=== PATIENT | male | born 1975 | race African-American/Black ===

== ENCOUNTER 2016-06-27 09:31 | Emergency (ER) | payer OTHER ==
[~2016-06-27] VITALS: Ht 185.4 cm; Wt 167.8 kg
[~2016-06-27 09:31] MED LIST: ALDACTONE25 MG; ALLOPURINOL 30300 M1 PO; AMLODIPINE BESYL5 M1 PO; AMOXICILLIN500 M1 PO; ATACAND32 MG PO; BENICAR20 MG PO; BENICAR40 MG; BENICAR40 MG PO; CARVEDILOL25 MG PO; CARVEDILOL6.25 MG; CATAPRES-TTS 10.1 MG; CATAPRES-TTS 20.2 MG TOP; COLCHICINE 0.60.6 M1 PO; COLCHICINE0.6 MG PO; COLCRYS 0.6 MG0.6 MG PO; FUROSEMIDE 20 M20 M1; FUROSEMIDE 40 M40 M1 PO; HYDRALAZINE 10M10 MG; HYDRALAZINE 2525 M1; IMDUR 60 MG TAB60 M1 PO; INDOMETHACIN 2525 MG PO; MEDROL DOSPAK21 TAB PO; MEDROLDOSEPACK PO; NAPROSYN500 MG PO; NORCO 5-325 TA1 EACH; NORCO 5-325 TA1 EACH PO; PERCOCET 5-3251 EACH PO; PREDNISONE 20 M20 M1 PO; SPIRONOLACTONE25 M1
[2016-06-27] MEDS ORDERED: INDOMETHACIN 2525 MG PO (09:52)
[2016-06-27] MEDS ORDERED: MEDROL DOSPAK21 TA1 PO (09:52)
[2016-06-27] MEDS ORDERED: HYDRALAZINE 2525 MG PO (10:02)
[2016-06-27] MEDS ORDERED: ALDACTONE25 MG PO (10:02)
[2016-06-27] MEDS ORDERED: DIOVAN 80 MG TA80 M1 PO (10:02)
[2016-06-27] MEDS ORDERED: LASIX 40 MG TAB40 M2 PO (10:03)
[2016-06-27] MEDS ORDERED: COLCHICINE0.6 M1 PO (10:03)
[2016-06-27] MEDS ORDERED: METFORMIN HCL500 MG PO (10:04)
[2016-06-27] MEDS ORDERED: IMDUR 60 MG TAB60 M1 PO (10:04)
[2016-06-27] MEDS ORDERED: COREG25 MG PO (10:05)
[2016-06-27 10:08] VITALS: BP 157/85
== END 2016-06-27 10:09 ==
LOC: ER 09:31
DX: M10.072 Idiopathic gout, left ankle and foot (principal); I11.0 Hypertensive heart disease with heart failure; I50.9 Heart failure, unspecified; F10.99 Alcohol use, unspecified with unspecified alcohol-induced disorder

== ENCOUNTER 2016-09-21 07:04 | Emergency (ER) | payer OTHER ==
[~2016-09-21] VITALS: Ht 185.4 cm; Wt 167.8 kg
[~2016-09-21 07:04] MED LIST changes: +ALDACTONE25 MG PO; +COLCHICINE0.6 M1 PO; +COREG25 MG PO; +DIOVAN 80 MG TA80 M1 PO; +HYDRALAZINE 2525 MG PO; +LASIX 40 MG TAB40 M2 PO; +MEDROL DOSPAK21 TA1 PO; +METFORMIN HCL500 MG PO
[2016-09-21] MEDS ORDERED: MEDROLDOSEPACK PO (07:29)
[2016-09-21 07:45] VITALS: BP 174/105
== END 2016-09-21 07:49 | disposition home or self-care (01) ==
LOC: ER 07:04
DX: M10.072 Idiopathic gout, left ankle and foot (principal); I11.0 Hypertensive heart disease with heart failure; I50.9 Heart failure, unspecified; F10.99 Alcohol use, unspecified with unspecified alcohol-induced disorder

== ENCOUNTER 2016-10-14 10:34 | Emergency (ER) | payer BC, OTHER ==
[~2016-10-14] VITALS: Ht 185.4 cm; Wt 167.8 kg
[2016-10-14 10:50] VITALS: BP 152/90
[2016-10-14 11:23] LABS: CALCIUM 9.2 mg/dL (8.5-10.1); CREATININE 1.1 mg/dL (0.7-1.3); POTASSIUM 4.6 mmol/L (3.5-5.1)
[2016-10-14 11:30] LABS: URIC ACID* 9.7 mg/dL (2.6-7.2)
[2016-10-14] MEDS ORDERED: INDOMETHACIN 2525 MG PO (11:34)
[2016-10-14] MEDS ORDERED: MEDROL DOSPAK21 TAB PO (11:34)
== END 2016-10-14 11:50 | disposition home or self-care (01) ==
LOC: ER 10:34
PROVIDERS: Physician Assistant
DX: M10.071 Idiopathic gout, right ankle and foot (principal); I11.0 Hypertensive heart disease with heart failure; I50.9 Heart failure, unspecified; F10.99 Alcohol use, unspecified with unspecified alcohol-induced disorder

== ENCOUNTER 2016-11-28 19:46 | Emergency (ER) | payer BC, OTHER ==
[~2016-11-28] VITALS: Ht 185.4 cm; Wt 180.5 kg
[2016-11-28 20:23] LABS: ABSOLUTE NEUTROPHILS 3.6 thou/uL (1.4-8.2); BASOPHILS 0.4 % (0.0-2.0); EOSINOPHILS 2.4 % (0.0-3.0); HEMATOCRIT 36.4 % (42.0-52.0); HEMOGLOBIN 12.1 gm/dL (14.0-18.0); LYMPHOCYTES 27.3 % (24.0-44.0); MANUAL DIFF NO; MCH 31.2 pg (26.0-34.0); MCHC 33.3 g/dL (28.0-37.0); MCV 93.4 fL (80.0-100.0); MONOCYTES 10.1 % (1.0-8.0); PLATELET COUNT 185 thou/uL (150-400); POLYS 59.8 % (36.0-66.0); RDW 13.8 % (10.5-14.5)
[2016-11-28] MEDS ORDERED: COLCHICINE0.6 MG PO (20:29)
[2016-11-28] MEDS ORDERED: INDOMETHACIN 5050 M1 PO (20:30)
[2016-11-28 20:39] LABS: CALCIUM 8.7 mg/dL (8.5-10.1); CREATININE 1.3 mg/dL (0.7-1.3); POTASSIUM 3.4 mmol/L (3.5-5.1)
[2016-11-28 20:44] LABS: ALBUMIN 3.8 g/dL (3.4-5.0); TOTAL PROTEIN 7.8 g/dL (6.4-8.2); URIC ACID* 9.6 mg/dL (2.6-7.2)
[2016-11-28 21:15] VITALS: BP 157/88
== END 2016-11-28 21:15 | disposition home or self-care (01) ==
LOC: ER 19:46
PROVIDERS: Physician Assistant
DX: M10.072 Idiopathic gout, left ankle and foot (principal); I11.0 Hypertensive heart disease with heart failure; I50.9 Heart failure, unspecified; F10.99 Alcohol use, unspecified with unspecified alcohol-induced disorder

== ENCOUNTER 2016-12-01 16:21 | Emergency (ER) | payer BC, OTHER | END 2016-12-01 17:08 | disposition home or self-care (01) | LOC: ER 16:21 | DX: M10.072 Idiopathic gout, left ankle and foot (principal); I11.0 Hypertensive heart disease with heart failure; I50.9 Heart failure, unspecified; F10.99 Alcohol use, unspecified with unspecified alcohol-induced disorder ==

== ENCOUNTER 2017-02-05 15:38 | Emergency (ER) | payer BC, OTHER ==
[~2017-02-05] VITALS: Ht 185.4 cm; Wt 169.2 kg
--- NOTE | ~2017-02-05 | EKG ---
[address] [address] [place] [address] ELECTROCARDIOGRAM REPORT Name: GERI SCOTTELL Room #: REG Hola#: [id number] Admission: 02/05/17 Attend Phys: Discharge: Date of : 73 Report #: [id number] THIS REPORT FOR: //name// [facility] ED Test Date: 2017-02-05 Test Time: 16:23:29 Pat Name: GERI SCOTT Department: Room: Gender: Convict Guard: cweijovan : 1975 Requested By: Ramiro Soto Order Number: [id number] MD: Bjorn Bobo Measurements Intervals [place] Rate: 74 P: -25 ME: 198 QRS: -21 QRSD: 114 T: 139 QT: 411 QTc: 456 Interpretive Statements Sinus rhythm Ventricular premature complex LVH with IVCD and secondary repol abnrm Electronically Signed On 02-05-2017 16:40:55 CDT by Bjorn Bobo [email or web address] <ELECTRONICALLY SIGNED> By: Bjorn Bobo MD 02/05/17 1640 1623 1623 MD AARON Guido
[~2017-02-05 15:38] MED LIST changes: +INDOMETHACIN 5050 M1 PO; +PREDNISONE 20 M20 MG PO; +TORADOL 10 MG T10 MG PO
[2017-02-05 16:26] LABS: HEMATOCRIT 38.8 % (42.0-52.0); HEMOGLOBIN 12.6 gm/dL (14.0-18.0); MCH 30.4 pg (26.0-34.0); MCHC 32.4 g/dL (28.0-37.0); MCV 93.7 fL (80.0-100.0); RBC 4.14 mil/uL (4.50-6.00); RDW 13.9 % (10.5-14.5); WBC 5.9 thou/uL (4.0-11.0)
[2017-02-05 16:35] LABS: CALCIUM 8.9 mg/dL (8.5-10.1); CREATININE 1.2 mg/dL (0.7-1.3); POTASSIUM 3.6 mmol/L (3.5-5.1)
[2017-02-05 16:44] LABS: TROPONIN-I 0.05 ng/mL (<0.06)
[2017-02-05] MEDS ORDERED: LASIX 40 MG TAB40 M2 PO (18:55)
[2017-02-05 18:58] VITALS: BP 171/95
== END 2017-02-05 19:00 | disposition home or self-care (01) ==
LOC: ER 15:38
PROVIDERS: Emergency Medicine
DX: I11.0 Hypertensive heart disease with heart failure (principal); I50.9 Heart failure, unspecified; R06.02 Shortness of breath; M10.9 Gout, unspecified; E78.00 Pure hypercholesterolemia, unspecified; E11.9 Type 2 diabetes mellitus without complications; F10.99 Alcohol use, unspecified with unspecified alcohol-induced disorder

== ENCOUNTER 2017-04-09 11:50 | Emergency (ER) | payer BC, OTHER ==
[~2017-04-09] VITALS: Ht 185.4 cm; Wt 167.8 kg
[~2017-04-09 11:50] MED LIST changes: +ALBUTEROL2.5 MG/31 INH; +COLCRYS0.6 MG PO; +HYDROCODONE-AP1 EAC6 PO; +NEBULIZER MISCELL
[2017-04-09 11:51] VITALS: BP 200/137
[2017-04-09] MEDS ORDERED: MEDROLDOSEPACK PO (12:15)
[2017-04-09] MEDS ORDERED: INDOMETHACIN 2525 MG PO (12:15)
[2017-04-09] MEDS ORDERED: COLCHICINE0.6 MG PO (12:15)
[2017-12-07] MEDS ORDERED: COZAAR 50 MG TA50 M1 PO (05:41)
[2017-12-07] MEDS ORDERED: ALLOPURINOL 10100 M1 PO (05:42)
[2017-12-07] MEDS ORDERED: SPIRONOLACTONE25 M1 PO (05:43)
[2017-12-07] MEDS ORDERED: PREDNISONE 20 M20 MG PO (05:50)
[2017-12-07] MEDS ORDERED: COLCHICINE0.6 MG PO (05:50)
[2017-12-07] MEDS ORDERED: NORCO 5-325 TA1 EACH PO (05:50)
[2017-12-07] MEDS ORDERED: INDOMETHACIN 2525 MG PO (05:50)
== END 2017-04-09 13:41 | disposition home or self-care (01) ==
LOC: ER 11:50
DX: Z76.0 Encounter for issue of repeat prescription (principal); M10.9 Gout, unspecified; I11.0 Hypertensive heart disease with heart failure; I50.9 Heart failure, unspecified

== ENCOUNTER 2017-05-05 13:49 | Emergency (ER) | payer BC, OTHER ==
[~2017-05-05] VITALS: Ht 185.4 cm; Wt 170.1 kg
--- NOTE | ~2017-05-05 | EKG ---
[address] [address] [employer] [place] [address] ELECTROCARDIOGRAM REPORT Name: GERI SCOTT Room #: DEP [facility] [id number] Admission: 05/05/17 Attend Phys: Discharge: 05/05/17 Date of : 73 Report #: [id number] THIS REPORT FOR: //name// [facility] ED Test Date: 2017-05-05 Test Time: 14:39:14 Pat Name: GERI SCOTT Department: Room: Gender: M Floor Coverer Apprentice: Milly MELGOZA : 1975 Requested By: Glenny Mejia Order Number: [id number] MD: Arturo Xiong Measurements Intervals [place] Rate: 72 P: -1 ME: 197 QRS: -16 QRSD: 123 T: 113 QT: 423 QTc: 463 Interpretive Statements Sinus rhythm Nonspecific intraventricular conduction delay Nonspecific ST and T wave abnormality Compared to ECG 02/20/2017 10:20:52 No significant change was found Electronically Signed On 05-06-2017 8:19:14 SUBSTANCE ABUSE TECHNICIAN by Arturo Xiong [email or web address] <ELECTRONICALLY SIGNED> By: Arturo Xiong MD, [facility] 05/06/17 0819 1439 1439 Arturo Xiong MD, [facility] /EPI
[2017-05-05 15:02] LABS: ABSOLUTE NEUTROPHILS 3.9 thou/uL (1.4-8.2); BASOPHILS 0.7 % (0.0-2.0); HEMATOCRIT 35.2 % (42.0-52.0); HEMOGLOBIN 11.6 gm/dL (14.0-18.0); LYMPHOCYTES 26.6 % (24.0-44.0); MCH 30.1 pg (26.0-34.0); MCHC 32.9 g/dL (28.0-37.0); MCV 91.3 fL (80.0-100.0); MONOCYTES 8.1 % (1.0-8.0); PLATELET COUNT 279 thou/uL (150-400); POLYS 62.6 % (36.0-66.0); RBC 3.86 mil/uL (4.50-6.00); RDW 15.2 % (10.5-14.5); WBC 6.3 thou/uL (4.0-11.0)
[2017-05-05 15:58] LABS: ANION GAP 6 mmol/L (7-16); BUN 21 mg/dL (7-18); CALCIUM 8.5 mg/dL (8.5-10.1); CHLORIDE 106 mmol/L (98-107); CO2 32 mmol/L (21-32); CREATININE 1.3 mg/dL (0.7-1.3); GLUCOSE 92 mg/dL (74-106); POTASSIUM 3.2 mmol/L (3.5-5.1); SODIUM 144 mmol/L (136-145)
[2017-05-05 16:07] LABS: TROPONIN-I < 0.04 ng/mL (<0.06)
[2017-05-05 16:53] VITALS: BP 129/84
[2017-12-07] MEDS ORDERED: COZAAR 50 MG TA50 M1 PO (05:41)
[2017-12-07] MEDS ORDERED: ALLOPURINOL 10100 M1 PO (05:42)
[2017-12-07] MEDS ORDERED: SPIRONOLACTONE25 M1 PO (05:43)
[2017-12-07] MEDS ORDERED: NORCO 5-325 TA1 EACH PO (05:50)
[2017-12-07] MEDS ORDERED: COLCHICINE0.6 MG PO (05:50)
[2017-12-07] MEDS ORDERED: PREDNISONE 20 M20 MG PO (05:50)
[2017-12-07] MEDS ORDERED: INDOMETHACIN 2525 MG PO (05:50)
== END 2017-05-05 16:54 | disposition home or self-care (01) ==
LOC: ER 13:49
PROVIDERS: Emergency Medicine
DX: I11.0 Hypertensive heart disease with heart failure (principal); R09.02 Hypoxemia; M10.9 Gout, unspecified

== ENCOUNTER 2017-05-07 07:41 | Inpatient (IN) | payer BC, OTHER ==
[2017-05-07] VITALS (8 sets, daily range): BP systolic 146–171; BP diastolic 83–120
[~2017-05-07] VITALS: Ht 185.4 cm; Wt 164.8 kg
--- NOTE | ~2017-05-07 | EKG ---
[address] [place] [address] ELECTROCARDIOGRAM REPORT Name: TYLERGERI KWAME Room #: 358-P ADM IN M.R.#: [id number] Admission: 05/07/17 Attend Phys: Luan Merino MD Discharge: Date of : 73 Report #: [id number] THIS REPORT FOR: //name// [facility] ED Test Date: 2017-05-07 Test Time: 08:37:07 Pat Name: GERI SCOTT Department: Room: 358 Gender: M Medical Microbiologist: [facility] : 1975 Requested By: Mikala Kirby Order Number: [id number] MD: Bjorn Bobo Measurements Intervals [place] Rate: 64 P: -20 [place]: 192 QRS: -22 QRSD: 118 T: 123 QT: 433 QTc: 447 Interpretive Statements Sinus rhythm Ventricular premature complex Nonspecific intraventricular conduction delay Electronically Signed On 05-07-2017 15:13:01 STORAGE CENTER MANAGER by Bjorn Bobo [email or web address] <ELECTRONICALLY SIGNED> By: Bjorn Bobo MD 05/07/17 1513 0837 0837 MD AARON Guido
--- NOTE | ~2017-05-07 | CATHLAB ---
[facility] [place] [address] INVASIVE PROCEDURE REPORT Name: GERI SCOTT Room #: 208-P DIS IN ..#: [id number] Admission: 05/07/17 Attend Phys: Luan Merino MD Discharge: 05/13/17 Date of : 73 Date of Service: 05/14/172109 Report #: [id number] THIS REPORT FOR: //name// APPROVED REPORT Patient Details Patient Status: In-Patient Room #: 358 The patient is a 41 year-old male Event Personnel Tone Sofia Behavioral Therapy Coordinator, Desi Dill, Maxwell Rader Tharp, Mirella RN RN, Livan Munson scrum coach Performed Art Access - R femoral artery* Farooq Access - R femoral vein 31625 Initial Mod Sed Same Phys/QHP Gr5y [id number] Right and Left Heart Cath w/or w/o Coronarie [id number] [facility] Aortogram Abdominal Peripheral Angio 234448 Hemostasis w/ Mynx Procedure Narrative The Right Groin^ was infiltrated with subcutaneous anesthesia. A Right Heart Catheterization was performed with a 7 Fr. Leroy-Eloy catheter and pressure were recorded. Cardiac outputs were obtained by the Thermal Dilution method. A PINNACLE 6FR Sheath #[id number] sheath was inserted into the right femoral artery. Coronary angiography was performed using coronary diagnostic catheters. The right coronary system was accessed and visualized with a JR4 catheter. The left coronary system was accessed and visualized with a JL4 catheter. The left ventricle was accessed and visualized with a Pigtail catheter. Left ventriculogram was performed in 30 degree projection. An aortogram of the abdominal aorta was performed. Pre-demployment femoral angiogram was performed . Closure device was deployed with a 6 Fr Mynx. The patient tolerated the procedure well and there were no complications associated with the procedure. There was no hematoma. Intraoperative Conscious Sedation Sedation start time: 08:07 Case end Time: 08:32 Fentanyl 25 mcg Versed 2 mg Fluoro Time: 3.41 minutes Dose: DAP 39951.50 cGycm2 1087 mGy Contrast Type and Amount: Omnipaque [address] [address] INVASIVE PROCEDURE REPORT Name: GERI SCOTT Room #: 208-P [facility]#: [id number] Admission: 05/07/17 Attend Phys: Luan Merino MD Discharge: 05/13/17 Date of : 73 Date of Service: 05/14/17 2110 Report #: [id number] Hemodynamics The right atrial mean pressure is 27 mmHg. The right ventricular pressure is 93/16 mmHg. The pulmonary artery pressure is 90/45 mmHg with a mean of 63 mmHg. The mean pulmonary capillary wedge pressure is 44 mmHg. The aortic pressure is 154/109 mmHg with a mean of 126 mmHg. The left ventricular pressure is 155/23 mmHg with a mean of mmHg. The left ventricular end diastolic pressure is 43 mmHg. The cardiac output using thermo method is 6.90 L/min. The cardiac index using thermo method is 2.47 L/min/m2. Conclusion #1 successful right heart catheterization with markedly elevated pulmonary pressures see above hemodynamics #2 severe dilated left ventricle with severe global hypokinesis EF 20% range #3 abdominal aorta is intact without aneurysm single renal arteries briskly filling bilateral #4 left main is large and free of disease giving rise to LAD and circumflex #5 LAD with mild disease extends around the apex #6 circumflex OM large but nondominant with mild irregularity #7 dominant right eccentric 60-70% lesion moderate disease mid vessel with a mid distal 80% filling a preserved PDA and JAY Recommendations plan: Needs aggressive diuresis with marketed elevation pulmonary pressures wedge pressure 40-44 m mercury. IV Lasix bolus and drip has been initiated. This is severe global hypokinesis. It doesn't appear that intervention to the right coronary artery proximal or mid distal lesion would provide significant benefit or there is significant ischemic component here. Will need aggressive diuresis and optimal medical therapy. Consideration for RCA intervention at a later date when patient is more hemodynamically stable. Intervention L poses only further risk and not significant immediate benefit. We'll reevaluate as diuresis and hemodynamics improve. Transfer CCU in guarded condition <ELECTRONICALLY SIGNED> By: Tone Sofia MD, FACC 05/14/172109 09 09 Tone Sofia MD, FACC /INF
--- NOTE | ~2017-05-07 | 2DMMODE ---
[facility] [address] [place] [address] 2 D/M-MODE ECHOCARDIOGRAM Name: GERI SCOTT Room #: 358-P [facility] IN .R.#: [id number] Admission: 05/07/17 Attend Phys: Luan Merino MD Discharge: Date of : 73 Date of Service: 05/07/17 1225 Report #: [id number] THIS REPORT FOR: //name// APPROVED REPORT Study performed: 05/07/2017 10:28:43 EXAM: Comprehensive 2D, Doppler, and color-flow Echocardiogram Patient Location: Bedside Room #: 358 Status: routine BSA: 2.81 HR: 68 bpm BP: 168/120 mmHg Rhythm: NSR Other Information Study Quality: Good Indications Congestive Heart Failure Hypertension/HDD 2D Dimensions RVDd: 52.78 mm LVEF(%): 30.28 (>50%) IVSd: 13.34 (7-11mm) LVOT Diam: 20.93 (18-24mm) LVDd: 76.36 mm PWd: 16.12 (7-11mm) Ascending Ao: 33.28 (22-36mm) LVDs: 65.06 (25-40mm) Aortic Root: 31.42 mm IVC: 29.00 mm Romo's LVEF: 30.28 % Volumes Left Atrial Volume (Systole) Single Plane 4CH: 89.39 mL Single Plane 2CH: 106.86 mL LA ESV Index: 39.00 mL/m2 Aortic Valve AoV Peak Mert.: 1.67 m/s AO Peak Gr.: 11.20 mmHg LVOT Max P.76 mmHg LVOT Max V: 0.83 m/s FEROZ Vmax: 1.71 cm2 Mitral Valve E/A Ratio: 2.6 [facility] [address] [place] [address] 2 D/M-MODE ECHOCARDIOGRAM Name: GERI SCOTT [place] Room #: 358- ADM IN M.R.#: [id number] Admission: 05/07/17 Attend Phys: Luan Merino MD Discharge: Date of : 73 Date of Service: 05/07/17 1225 Report #: [id number] MV Decel. Time: 139.33 ms MV E Max Mert.: 1.52 m/s MV A Mert.: 0.58 m/s MV PHT: 40.41 ms IVRT: 78.43 ms Pulmonary Valve PV Peak Mert.: 0.95 m/s PV Peak Gr.: 3.59 mmHg Pulmonary Vein P Vein S: 0.23 m/s P Vein A: 0.14 m/s P Vein D: 0.61 m/s P Vein A Dur.: 96.9 msec P Vein S/D Ratio: 0.38 Tricuspid Valve TR Peak Mert.: 4.06 m/s RAP Estimate: 10.00 mmHg TR Peak Gr.: 65.83 mmHg PA Pressure: 76.00 mmHg Left Ventricle Left ventricle is dilated. Concentric left ventricular hypertrophy. Left ventricular systolic function is moderate to severely decreased. LVEF is 25-30%. Grade IV - fixed restrictive diastolic dysfunction. Right Ventricle Right ventricle is dilated. The right ventricular systolic function is normal. Atria Left atrium is dilated. Right atrium is dilated. Aortic Valve The aortic valve is normal in structure. No aortic regurgitation is present. There is no aortic valvular stenosis. Mitral Valve The mitral valve is normal in structure. Moderate mitral regurgitation. No evidence of mitral valve stenosis. Tricuspid Valve The tricuspid valve is normal in structure. Mild tricuspid regurgitation. Pulmonic Valve The pulmonary valve is normal in structure. Trace pulmonic [facility] [address] [place] [address] 2 D/M-MODE ECHOCARDIOGRAM Name: GERI SCOTT KWAME Room #: 358-P [facility] IN [facility]#: [id number] Admission: 05/07/17 Attend Phys: Luan Merino MD Discharge: Date of : 73 Date of Service: 05/07/17 1225 Report #: [id number] regurgitation. Great Vessels The aortic root is normal in size. The ascending aorta is normal in size. IVC is dilated and collapses <50% with inspiration. Estimated PAP 76 mmHg. Pericardium There is no pericardial effusion. <Conclusion> Left ventricle is dilated. Concentric left ventricular hypertrophy. Left ventricular systolic function is moderate to severely decreased. LVEF is 25-30%. Grade IV - fixed restrictive diastolic dysfunction. Right ventricle is dilated. Right ventricle is dilated. Left atrium is dilated. Right atrium is dilated. There is no aortic valvular stenosis. Moderate mitral regurgitation. Mild tricuspid regurgitation. IVC is dilated and collapses <50% with inspiration. Estimated PAP 76 mmHg. There is no pericardial effusion. <ELECTRONICALLY SIGNED> By: Tone Sofia MD, FACC 05/07/17 1225 1225 1225 Tone Sofia MD, FACC /INF
[2017-05-07 08:07] LABS: ABSOLUTE NEUTROPHILS 4.6 thou/uL (1.4-8.2); BASOPHILS 0.7 % (0.0-2.0); EOSINOPHILS 1.6 % (0.0-3.0); HEMOGLOBIN 11.3 gm/dL (14.0-18.0); LYMPHOCYTES 18.6 % (24.0-44.0); MCH 29.6 pg (26.0-34.0); MCHC 32.4 g/dL (28.0-37.0); MCV 91.4 fL (80.0-100.0); MONOCYTES 6.4 % (1.0-8.0); PLATELET COUNT 284 thou/uL (150-400); POLYS 72.7 % (36.0-66.0); RBC 3.82 mil/uL (4.50-6.00); RDW 14.8 % (10.5-14.5); WBC 6.3 thou/uL (4.0-11.0)
[2017-05-07 08:19] LABS: ANION GAP 6 mmol/L (7-16); BUN 18 mg/dL (7-18); CALCIUM 8.4 mg/dL (8.5-10.1); CHLORIDE 104 mmol/L (98-107); CO2 35 mmol/L (21-32); CREATININE 1.3 mg/dL (0.7-1.3); GLUCOSE 115 mg/dL (74-106); POTASSIUM 3.4 mmol/L (3.5-5.1); SODIUM 145 mmol/L (136-145)
[2017-05-07 08:28] LABS: TROPONIN-I < 0.04 ng/mL (<0.06)
[2017-05-07 08:50] LABS: URINE BILIRUBIN NEGATIVE (Negative); URINE BLOOD NEGATIVE (Negative); URINE CLARITY CLEAR; URINE COLOR YELLOW; URINE GLUCOSE-RANDOM* NEGATIVE (Negative); URINE KETONES NEGATIVE (Negative); URINE LEUKOCYTES NEGATIVE (Negative); URINE NITRITE NEGATIVE (Negative); URINE PROTEIN (DIPSTICK) 1+ (Negative); URINE SPECIFIC GRAVITY 1.015 (1.005-1.035); URINE UROBILINOGEN 0.2 E.U./dl (0.2-1.0)
[2017-05-07 09:08] LABS: BACTERIA None Seen /HPF (None Seen); CASTS None Seen /LPF (None Seen); CRYSTALS None Seen /LPF (None Seen); SQUAMOUS None Seen /LPF (0-3); URINE RBC 0-2 Rare /HPF (0-2); URINE WBC 0-5 Rare /HPF (0-5)
[2017-05-07] MEDS ORDERED: DIOVAN 80 MG TA80 M1 PO (09:21)
[2017-05-07] MEDS ORDERED: OXYCODONE HCL 55 MG PO (09:21)
[2017-05-07] MEDS ORDERED: COREG25 MG PO (09:22)
[2017-05-07] MEDS ORDERED: IBUPROFEN 400400 M2 PO (09:22)
[2017-05-07 15:40] LABS: POTASSIUM 3.3 mmol/L (3.5-5.1)
[2017-05-07 16:34] LABS: MAGNESIUM 1.9 mg/dL (1.8-2.4)
[2017-05-08 00:01] VITALS: BP 173/102
[2017-05-08 03:33] VITALS: BP 176/116
[2017-05-08 07:30] LABS: ANION GAP 8 mmol/L (7-16); BUN 14 mg/dL (7-18); CALCIUM 8.3 mg/dL (8.5-10.1); CHLORIDE 103 mmol/L (98-107); CO2 32 mmol/L (21-32); CREATININE 1.2 mg/dL (0.7-1.3); GLUCOSE 93 mg/dL (74-106); MAGNESIUM 2.1 mg/dL (1.8-2.4); POTASSIUM 3.3 mmol/L (3.5-5.1); SODIUM 143 mmol/L (136-145)
[2017-05-08 07:37] VITALS: BP 149/94
[2017-05-08 08:12] LABS: CHOLESTEROL 156 mg/dL (<200); HDL CHOLESTEROL 34 mg/dL (>40); LDL CHOLESTEROL 99 mg/dL (<100); TC:HDL 4.6 Ratio (Not establshd); TRIGLYCERIDE 116 mg/dL (<150); VLDL 23 mg/dL (<40)
[2017-05-08 13:36] VITALS: BP 132/78
[2017-05-08 15:47] VITALS: BP 123/78
[2017-05-08 20:15] VITALS: BP 150/94
[2017-05-09 03:55] VITALS: BP 133/85
[2017-05-09 04:28] LABS: HEMATOCRIT 32.3 % (42.0-52.0); HEMOGLOBIN 10.7 gm/dL (14.0-18.0); MCH 30.2 pg (26.0-34.0); MCHC 33.1 g/dL (28.0-37.0); MCV 91.3 fL (80.0-100.0); RBC 3.54 mil/uL (4.50-6.00); RDW 15.4 % (10.5-14.5); WBC 5.6 thou/uL (4.0-11.0)
[2017-05-09 04:32] LABS: CALCIUM 8.3 mg/dL (8.5-10.1); CREATININE 1.2 mg/dL (0.7-1.3); POTASSIUM 3.5 mmol/L (3.5-5.1)
[2017-05-09 09:15] VITALS: BP 144/80
[2017-05-09 13:46] LABS: ABSOLUTE NEUTROPHILS 4.7 thou/uL (1.4-8.2); BASOPHILS 0.6 % (0.0-2.0); EOSINOPHILS 1.5 % (0.0-3.0); HEMATOCRIT 32.2 % (42.0-52.0); HEMOGLOBIN 10.6 gm/dL (14.0-18.0); LYMPHOCYTES 14.9 % (24.0-44.0); MCH 29.7 pg (26.0-34.0); MCHC 32.8 g/dL (28.0-37.0); MCV 90.8 fL (80.0-100.0); MONOCYTES 9.2 % (1.0-8.0); PLATELET COUNT 281 thou/uL (150-400); POLYS 73.8 % (36.0-66.0); RBC 3.55 mil/uL (4.50-6.00); RDW 14.9 % (10.5-14.5); WBC 6.4 thou/uL (4.0-11.0)
[2017-05-09 13:53] LABS: CALCIUM 8.4 mg/dL (8.5-10.1); CREATININE 1.2 mg/dL (0.7-1.3); POTASSIUM 3.7 mmol/L (3.5-5.1)
[2017-05-09 13:59] LABS: INR 1.2; PROTIME 11.8 Seconds (9.3-11.4)
[2017-05-09 17:42] VITALS: BP 146/65
[2017-05-09 19:30] VITALS: BP 133/71
[2017-05-10] VITALS (11 sets, daily range): BP systolic 112–165; BP diastolic 60–105
[2017-05-10 06:03] LABS: CREATININE 1.1 mg/dL (0.7-1.3); POTASSIUM 3.9 mmol/L (3.5-5.1)
[2017-05-11 04:00] VITALS: BP 167/96
[2017-05-11 04:47] LABS: HEMATOCRIT 34.2 % (42.0-52.0); MCH 29.4 pg (26.0-34.0); MCHC 32.2 g/dL (28.0-37.0); MCV 91.2 fL (80.0-100.0); RBC 3.75 mil/uL (4.50-6.00); RDW 15.1 % (10.5-14.5); WBC 6.4 thou/uL (4.0-11.0)
[2017-05-11 04:57] LABS: CALCIUM 8.6 mg/dL (8.5-10.1); CREATININE 1.1 mg/dL (0.7-1.3); POTASSIUM 3.4 mmol/L (3.5-5.1)
[2017-05-11 07:44] VITALS: BP 149/92
[2017-05-11 12:13] VITALS: BP 134/80
[2017-05-11 15:30] VITALS: BP 153/91
[2017-05-11 15:40] VITALS: BP 111/62; BP 153/91
[2017-05-11 20:07] VITALS: BP 143/85
[2017-05-12 04:51] LABS: CALCIUM 8.9 mg/dL (8.5-10.1); CREATININE 1.1 mg/dL (0.7-1.3); POTASSIUM 3.7 mmol/L (3.5-5.1)
[2017-05-12 05:08] VITALS: BP 137/86
[2017-05-12 07:25] VITALS: BP 169/112
[2017-05-12 11:40] VITALS: BP 110/54
[2017-05-12 16:30] VITALS: BP 118/64
[2017-05-12 20:47] VITALS: BP 136/77
[2017-05-13 03:51] LABS: CALCIUM 9.2 mg/dL (8.5-10.1); CREATININE 1.3 mg/dL (0.7-1.3); POTASSIUM 3.9 mmol/L (3.5-5.1)
[2017-05-13 05:15] VITALS: BP 147/91; BP 158/101
[2017-05-13 07:25] VITALS: BP 166/107
[2017-05-13] MEDS ORDERED: ALDACTONE25 MG PO (10:37)
[2017-05-13] MEDS ORDERED: DEMADEX20 MG PO (10:37)
[2017-05-13] MEDS ORDERED: PROTONIX40 M1 PO (10:38)
[2017-05-13] MEDS ORDERED: PREDNISONE 20 M20 M1 PO (10:38)
[2017-05-13 11:07] VITALS: BP 166/107
[2017-05-13 11:20] VITALS: BP 166/107
[2017-12-07] MEDS ORDERED: COZAAR 50 MG TA50 M1 PO (05:41)
[2017-12-07] MEDS ORDERED: ALLOPURINOL 10100 M1 PO (05:42)
[2017-12-07] MEDS ORDERED: SPIRONOLACTONE25 M1 PO (05:43)
[2017-12-07] MEDS ORDERED: INDOMETHACIN 2525 MG PO (05:50)
[2017-12-07] MEDS ORDERED: PREDNISONE 20 M20 MG PO (05:50)
[2017-12-07] MEDS ORDERED: COLCHICINE0.6 MG PO (05:50)
[2017-12-07] MEDS ORDERED: NORCO 5-325 TA1 EACH PO (05:50)
== END 2017-05-13 11:43 | disposition home or self-care (01) | DRG 287 ==
LOC: ER 07:41 → EROBS 08:58 → 3W 08:58 → 2N 05-10 09:25 → ENTRNSPT 05-13 11:35 → EDTRNSPTSTS 05-13 11:36 → 2N 05-13 11:43
PROVIDERS: Emergency Medicine; Hospitalist; Internal Medicine; Internal Medicine Cardiovascular Disease; Nurse Practitioner
PROC: B2111ZZ Fluoroscopy of Multiple Coronary Arteries using Low Osmolar Contrast (ICD-10-PCS; principal; 2017-05-13)
PROC: 4A023N6 Measurement of Cardiac Sampling and Pressure, Right Heart, Percutaneous Approach (ICD-10-PCS; principal; 2017-05-13)
DX: I11.0 Hypertensive heart disease with heart failure (principal); Z68.42 Body mass index [BMI] 45.0-49.9, adult; I50.23 Acute on chronic systolic (congestive) heart failure; I42.8 Other cardiomyopathies; E66.01 Morbid (severe) obesity due to excess calories; M10.9 Gout, unspecified; E87.6 Hypokalemia; G47.33 Obstructive sleep apnea (adult) (pediatric)
CPT/HCPCS: 10081; 10779

== ENCOUNTER 2017-05-22 06:10 | Emergency (ER) | payer BC, OTHER ==
[~2017-05-22] VITALS: Ht 185.4 cm; Wt 167.8 kg
[2017-05-22 06:10] VITALS: BP 108/81
[~2017-05-22 06:10] MED LIST changes: +DEMADEX20 MG PO; +IBUPROFEN 400400 M2 PO; +OXYCODONE HCL 55 MG PO; +PROTONIX40 M1 PO
[2017-05-22] MEDS ORDERED: NORCO 5-325 TA1 EACH PO (06:42)
[2017-05-22] MEDS ORDERED: INDOMETHACIN 2525 MG PO (06:42)
[2017-05-22] MEDS ORDERED: COLCHICINE0.6 MG PO (06:42)
[2017-05-22] MEDS ORDERED: PREDNISONE 20 M20 MG PO (06:42)
[2017-12-07] MEDS ORDERED: COZAAR 50 MG TA50 M1 PO (05:41)
[2017-12-07] MEDS ORDERED: ALLOPURINOL 10100 M1 PO (05:42)
[2017-12-07] MEDS ORDERED: SPIRONOLACTONE25 M1 PO (05:43)
[2017-12-07] MEDS ORDERED: NORCO 5-325 TA1 EACH PO (05:50)
[2017-12-07] MEDS ORDERED: PREDNISONE 20 M20 MG PO (05:50)
[2017-12-07] MEDS ORDERED: INDOMETHACIN 2525 MG PO (05:50)
[2017-12-07] MEDS ORDERED: COLCHICINE0.6 MG PO (05:50)
== END 2017-05-22 06:55 | disposition home or self-care (01) ==
LOC: ER 06:10
DX: M10.9 Gout, unspecified (principal); I11.0 Hypertensive heart disease with heart failure; I50.9 Heart failure, unspecified

== ENCOUNTER 2017-06-12 22:56 | Emergency (ER) | payer BC, OTHER ==
[~2017-06-12] VITALS: Ht 185.4 cm; Wt 165.1 kg
[2017-06-13] MEDS ORDERED: INDOMETHACIN 2525 MG PO (00:54)
[2017-06-13] MEDS ORDERED: NORCO 5-325 TA1 EACH PO (00:54)
[2017-06-13] MEDS ORDERED: PREDNISONE 20 M20 MG PO (00:54)
[2017-06-13 01:50] VITALS: BP 190/90
[2017-12-07] MEDS ORDERED: COZAAR 50 MG TA50 M1 PO (05:41)
[2017-12-07] MEDS ORDERED: ALLOPURINOL 10100 M1 PO (05:42)
[2017-12-07] MEDS ORDERED: SPIRONOLACTONE25 M1 PO (05:43)
[2017-12-07] MEDS ORDERED: INDOMETHACIN 2525 MG PO (05:50)
[2017-12-07] MEDS ORDERED: PREDNISONE 20 M20 MG PO (05:50)
[2017-12-07] MEDS ORDERED: COLCHICINE0.6 MG PO (05:50)
[2017-12-07] MEDS ORDERED: NORCO 5-325 TA1 EACH PO (05:50)
== END 2017-06-13 01:55 | disposition home or self-care (01) ==
LOC: ER 22:56
DX: M25.571 Pain in right ankle and joints of right foot (principal); I11.0 Hypertensive heart disease with heart failure; I50.9 Heart failure, unspecified; M10.9 Gout, unspecified

== ENCOUNTER 2017-07-23 17:37 | Emergency (ER) | payer BC, OTHER ==
[~2017-07-23] VITALS: Ht 185.4 cm; Wt 165.6 kg
[2017-07-23] MEDS ORDERED: DEMADEX20 MG PO (17:54)
[2017-07-23] MEDS ORDERED: COLCHICINE0.6 MG PO (18:15)
[2017-07-23] MEDS ORDERED: PREDNISONE 20 M20 MG PO (18:15)
[2017-07-23] MEDS ORDERED: HYDROCODONE-AP1 EAC6 PO (18:15)
== END 2017-07-23 18:37 | disposition home or self-care (01) ==
LOC: ER 17:37
DX: M10.071 Idiopathic gout, right ankle and foot (principal); I11.0 Hypertensive heart disease with heart failure; I50.9 Heart failure, unspecified

== ENCOUNTER 2017-08-15 00:13 | Emergency (ER) | payer BC, OTHER ==
[~2017-08-15] VITALS: Ht 185.4 cm; Wt 165.1 kg
[2017-08-15] MEDS ORDERED: NORCO 5-325 TA1 EACH PO (00:32)
[2017-08-15] MEDS ORDERED: COLCHICINE0.6 MG PO (00:32)
[2017-08-15] MEDS ORDERED: PREDNISONE 20 M20 MG PO (00:32)
== END 2017-08-15 00:45 | disposition home or self-care (01) ==
LOC: ER 00:13
DX: M10.072 Idiopathic gout, left ankle and foot (principal); I11.0 Hypertensive heart disease with heart failure; I50.9 Heart failure, unspecified

== ENCOUNTER 2017-09-04 17:49 | Emergency (ER) | payer BC, OTHER ==
[~2017-09-04] VITALS: Ht 185.4 cm; Wt 165.1 kg
[2017-09-04] MEDS ORDERED: COLCHICINE0.6 MG PO (18:21)
[2017-09-04] MEDS ORDERED: PREDNISONE 20 M20 MG PO (18:21)
== END 2017-09-04 18:51 | disposition home or self-care (01) ==
LOC: ER 17:49
DX: M25.572 Pain in left ankle and joints of left foot (principal); Z76.0 Encounter for issue of repeat prescription; I11.0 Hypertensive heart disease with heart failure; I50.9 Heart failure, unspecified; M10.9 Gout, unspecified

== ENCOUNTER 2017-10-12 21:24 | Emergency (ER) | payer BC, OTHER ==
[~2017-10-12] VITALS: Ht 185.4 cm; Wt 163.3 kg
[2017-10-12 22:06] LABS: BASOPHILS 0.5 % (0.0-2.0); EOSINOPHILS 0.9 % (0.0-3.0); HEMATOCRIT 37.9 % (42.0-52.0); HEMOGLOBIN 12.7 gm/dL (14.0-18.0); MCH 31.5 pg (26.0-34.0); MCHC 33.7 g/dL (28.0-37.0); MCV 93.7 fL (80.0-100.0); MONOCYTES 10.1 % (1.0-8.0); PLATELET COUNT 194 thou/uL (150-400); POLYS 69.5 % (36.0-66.0); RBC 4.04 mil/uL (4.50-6.00); WBC 8.6 thou/uL (4.0-11.0)
[2017-10-12 22:15] LABS: CALCIUM 9.1 mg/dL (8.5-10.1); CREATININE 1.5 mg/dL (0.7-1.3)
[2017-10-12 22:20] LABS: ALBUMIN 3.8 g/dL (3.4-5.0); TOTAL BILIRUBIN 1.4 mg/dL (<0.1-1.0); TOTAL PROTEIN 8.2 g/dL (6.4-8.2); URIC ACID* 11.4 mg/dL (2.6-7.2)
[2017-10-12] MEDS ORDERED: HYDROCODONE-AP1 EAC6 PO (23:10)
[2017-10-12] MEDS ORDERED: PREDNISONE 20 M20 MG PO (23:10)
[2017-10-12] MEDS ORDERED: COLCHICINE0.6 MG PO (23:10)
== END 2017-10-12 23:32 | disposition home or self-care (01) ==
LOC: ER 21:24
PROVIDERS: Emergency Medicine
DX: M10.9 Gout, unspecified (principal); M71.562 Other bursitis, not elsewhere classified, left knee; I11.0 Hypertensive heart disease with heart failure; I50.9 Heart failure, unspecified

== ENCOUNTER 2018-03-01 11:54 | Emergency (ER) | payer BC, OTHER ==
[~2018-03-01] VITALS: Ht 185.4 cm; Wt 171.5 kg
[~2018-03-01 11:54] MED LIST changes: +ALLOPURINOL 10100 M1 PO; +COZAAR 50 MG TA50 M1 PO; +SPIRONOLACTONE25 M1 PO
[2018-03-01 12:45] LABS: CALCIUM 9.3 mg/dL (8.5-10.1); CREATININE 1.5 mg/dL (0.7-1.3); POTASSIUM 3.9 mmol/L (3.5-5.1)
[2018-03-01 12:48] LABS: URIC ACID* 5.6 mg/dL (2.6-7.2)
[2018-03-01] MEDS ORDERED: INDOMETHACIN 2525 MG PO (13:19)
[2018-03-01] MEDS ORDERED: COLCHICINE0.6 MG PO (13:19)
[2018-03-01] MEDS ORDERED: PREDNISONE 20 M20 MG PO (13:19)
[2018-03-01 13:28] VITALS: BP 118/74
== END 2018-03-01 13:46 | disposition home or self-care (01) ==
LOC: ER 11:54
PROVIDERS: Physician Assistant
DX: M25.572 Pain in left ankle and joints of left foot (principal); Z87.39 Personal history of other diseases of the musculoskeletal system and connective tissue; I11.0 Hypertensive heart disease with heart failure; I50.9 Heart failure, unspecified; M10.9 Gout, unspecified

== ENCOUNTER 2018-04-06 00:27 | Emergency (ER) | payer BC, OTHER ==
[~2018-04-06] VITALS: Ht 185.4 cm; Wt 173.3 kg
[2018-04-06] MEDS ORDERED: INDOMETHACIN 2525 MG PO (02:11)
[2018-04-06] MEDS ORDERED: NORCO 7.5-3251 EACH PO (02:11)
[2018-04-06 02:23] VITALS: BP 136/83
== END 2018-04-06 02:23 | disposition home or self-care (01) ==
LOC: ER 00:27
DX: M10.072 Idiopathic gout, left ankle and foot (principal); I11.0 Hypertensive heart disease with heart failure; I50.9 Heart failure, unspecified